=== PATIENT | female | born 1995 | race Caucasian/White ===

== ENCOUNTER → 2017-09-29 09:58 | Outpatient (CLI) | payer MEDICAID, SELFPAY ==
[2017-09-29 11:28] LABS: hCG Titer Quant., Serum < 1 mIU/mL (<9 non-preg)
== END ==
PROVIDERS: Visit Provider Obstetrics & Gynecology
DX: N91.2 Amenorrhea, unspecified (principal)
CPT/HCPCS: 36415; 84702

== ENCOUNTER → 2018-01-03 11:01 | Outpatient (CLI) | payer MEDICAID, SELFPAY ==
[2018-01-03 18:26] LABS: Chlamydia Trachomatis by PCR Negative (Negative); Neisserai gonorrhoeae by PCR Negative (Negative); Probe Check PASS; Sample Adequacy Control PASS; Specimen Processing Control PASS
[2018-01-08 13:25] LABS: HPV Reflexed? NOT INDICATED
== END ==
PROVIDERS: Visit Provider Obstetrics & Gynecology
DX: Z01.419 Encounter for gynecological examination (general) (routine) without abnormal findings (principal); Z12.4 Encounter for screening for malignant neoplasm of cervix
CPT/HCPCS: 87491; 87591; 88175; G0145

== ENCOUNTER → 2018-03-08 08:49 | Outpatient (CLI) | payer MEDICAID, SELFPAY ==
[2018-03-08 09:41] LABS: Hemoglobin A1c 5.1 % (4.2-6.3)
[2018-03-08 10:00] LABS: hCG Titer Quant., Serum < 1 mIU/mL (<9 non-preg)
[2018-03-08 10:07] LABS: Free T3 2.2 pg/mL (2.18-3.98); T4 Free Direct 1.02 ng/dL (0.76-1.46); Thyroid Stim Hormone (TSH) 0.65 uIU/mL (0.358-3.74)
== END ==
PROVIDERS: Visit Provider Obstetrics & Gynecology
DX: N93.9 Abnormal uterine and vaginal bleeding, unspecified (principal)
CPT/HCPCS: 36415; 83036; 84439; 84443; 84481; 84702

== ENCOUNTER 2019-01-10 11:28 | Emergency (ER) | payer MEDICAID, SELFPAY ==
[2019-01-10 11:29] VITALS: BP 137/70; PULSE 75; RESP 16; TEMP 36.7; O2SAT 98; BMI 34.9
--- NOTE | 2019-01-10 12:06 | ED.VIS.HA ---
History of Present Illness Chief Complaint: Headache Informant: Patient Onset: Today Context: Gradual Timing: Continuous Quality: Throbbing Location: Right temporal Current Severity: Moderate Maximum Severity: Severe Worsened by: Light Relieved by: Nothing Associated Symptoms: Nausea, Vomiting, Photophobia. Negative for: Fever, Sore Throat, Sinus Pressure, Numbness, Tingling, Preceding Aura, Visual Changes, Blurred Vision, Visual Loss Injury: - - There is no history of trauma Narrative: Patient is a 23-year-old female who presents with throbbing unilateral headache with photophobia and sonophobia. She has history of migraine headaches. She denies blurred vision or double vision. Denies ringing or ears. Denies rhinorrhea, congestion or postnasal drainage. Denies sore throat. Denies neck pain or neck stiffness. She denies cardiac or respiratory symptoms. She does report nausea and vomiting. She denies urologic symptoms. Denies skin lesions. There is no history of trauma. Patient is not sexually active. Prior similar symptoms: Yes Recent Illness/Hospitalization: No Past Medical History - Allergies and Home Meds Allergies/Adverse Reactions: Allergies hydromorphone HCl [From Dilaudid] Adverse Reaction (Verified 02/27/15 18:15) Nausea Primary Care Physician: Care Physician,No Primary [Primary Care Provider] - Prior records reviewed: Yes - High-grade headaches Lives: Alone Smoking Status: Current every day smoker Alcohol: Rare Drugs: None Review of Systems General: Denies: Chills, Fever, Sweats Eyes: Denies: Visual changes - bilaterally, Blurred Vision - bilaterally, Diplopia ENT: Denies: Rhinorrhea, Sore throat Cardiovascular: Denies: Chest pain, Palpitations Respiratory: Denies: Dyspnea, Cough, Dyspnea on exertion Gastrointestinal: Reports: Nausea, Vomiting. Denies: Abdominal pain, Diarrhea, Melena, Hematochezia Genitourinary: Denies: Dysuria, Hematuria, Frequency Musculoskeletal: Denies: Back pain, Extremity Pain Skin: Denies: Rash, Wounds Neurological: Reports: Headache. Denies: Weakness, Parasthesia, Numbness Hematologic: Denies: Easy bruising, Easy bleeding Allergy: Denies: Swelling of the mouth, Swelling of the tongue Physical Exam Vital Signs/Narrative: Vital Signs Temp Pulse Resp BP Pulse Ox 01/10/19 11:29 98.1 F 75 16 137/70 H 98 Inital Vital Signs reviewed: Yes General: Well nourished, Well developed Head: NC, AT Eyes: Perrl, EOMI. Negative for: Pale conjunctiva, Scleral icterus ENT: Moist mucous membranes, No rhinorrhea, TM's clear, - - Funduscopic exam reveals normal cup-to-disc ratio. There is no papilledema.. Negative for: Nasal congestion, Sinus tenderness Neck: Supple, No Lymphadenopathy, No JVD, Nontender, No Meningismus Cardiovascular: Regular rate, Regular rhythm, No murmurs, Normal S1, Normal S2 Respiratory: No distress, CTA bilaterally, Chest nontender Abdomen: Soft, Nontender, Nondistended, Normal bowel sounds Back: Nontender, Normal Inspection Extremities: Nontender, No edema Skin: Normal color, No rash Neuro: Alert, Oriented x3, Cranial nerves II-XII grossly intact, Normal Strength, Normal Sensation, Normal DTR, Normal Gait, - - There is no clonus or Babinski sign. Psychological: Normal affect, Depressed, Tearful Diagnostic/Tx/Re-eval - Medical Decision Making Cephalgia differential would represent tension, muscle skeletal, vascular, migraine, pseudotumor cerebri. She was treated with IV Toradol, Benadryl and Reglan. Her neuro exam is normal imaging was not obtained. Patient was reassessed at 1330. She was awake and sleep. She states her headache has resolved. She will be discharged home. ED Disposition - Plan for ED Patient: Disposition: Home or Assisted Living Diagnosis: Migraine headache without aura Instructions: ED, Migraine (Classical) Referrals: Care Physician,No Primary [Primary Care Provider] - Additional Instructions: Recommend contacting your primary care physician. The name of your primary care physician is located on your health insurance card. Recommend contacting your primary care physician. You may be a candidate for medication to prevent migraine headaches.
[2019-01-10] MEDS: DiphenhydrAMINE 50 MG/ML Syringe 25 MG IV (12:31)
[2019-01-10] MEDS: Metoclopramide 10 MG/2 ML Vial IV (12:31)
[2019-01-10] MEDS: Ketorolac 30 MG/ML Syringe 15 MG IV (12:31)
[2019-01-10] MEDS: 0.9% Normal Saline 1,000 ML 999 ML IV (12:32)
[2019-01-10 13:28] VITALS: BP 110/63; PULSE 67; RESP 16; O2SAT 100
[2019-01-10 14:00] VITALS: BP 110/63; PULSE 67; RESP 16; O2SAT 100
== END 2019-01-10 14:01 | disposition home or self-care (01) ==
PROVIDERS: Emergency Provider Emergency Medicine
DX: G43.009 Migraine without aura, not intractable, without status migrainosus (principal); F17.200 Nicotine dependence, unspecified, uncomplicated
CPT/HCPCS: 96361; 96374; 96375; 99283; J7030; A4216

== ENCOUNTER 2020-04-19 21:17 | Emergency (ER) | payer MEDICAID, SELFPAY ==
[2020-04-19 21:19] VITALS: BP 147/84; PULSE 87; RESP 16; TEMP 36.3; O2SAT 100; BMI 39.9
--- NOTE | 2020-04-19 21:33 | ED.VISSUMM ---
- ER Visit Summary Date of Service: 04/19/20 Chief Complaint: Right sided headache History of Present Illness: The patient is a 24 F history of headache states that she has migraines. Patient states she woke up this morning was doing well a gradual onset of a headache around noon which is progressively gotten worse. She denies any falls or recent head trauma. She is on no blood thinners. No sinus congestion. No fever or neck pain. No visual change. No numbness or weakness. No family history of intracranial bleeds nor aneurysms. This was not sudden onset. She has had headaches like this before. Said she normally can control them but occasionally has to come in to be seen by a physician. She did treated initially with Tylenol and also Excedrin at home without significant relief. Physical Examination: Young female sitting in a darkened room. Vital signs are stable. She is afebrile. Initial blood pressure 147/84. HEENT exam pupils round reactive light extra motions are intact. She is photophobic. No facial droop. Normal speech. No signs of trauma to her face or scalp. No sinus tenderness. Neck nontender. No lymphadenopathy. No meningismus. Able to touch her chin to chest. Lungs clear to auscultation. Heart regular rhythm no murmur. Abdomen soft nontender normal bowel sounds no peritoneal signs. Extremities moves all 4. No edema. Neurologically she is awake alert. Acting appropriately. Normal motor strength and sensation. No facial droop. Normal speech. 5/5 hydrology technician strength bilaterally. Dorsi plantarflexion intact bilaterally. [id number] and [id number] within normal limits bilaterally. NIH score of 0. Test Results: None Emergency Department Course and Treatment: History and exam are consistent with a migraine headache. She is completely normal neurologic exam. I do not think she needs imaging. She will be treated with IV fluids, IV Reglan, IV Benadryl and IV Toradol and reassess. Repeat exam at 10:31 PM. Patient swelling is some relief with the medications. She will be checked out to the overnight physician to be reassessed prior to discharge. Treatment Plan: Fluids and rest. Return if worse. Follow-up with a local primary care physician. Disposition: Discharge Impression: Acute cephalgia with history of migraines This note was generated with [employer] dictation software. It may contain incorrect words, spelling, and punctuation that were not noted in review of the chart prior to signing ED Disposition - Plan for ED Patient: Disposition: Home or Assisted Living Instructions: ED Headache Unspecified Referrals: Baldemar Montes MD [STAFF PHYSICIAN] - 3-5 Days if not improving Additional Instructions: Plenty of fluids and rest. Tylenol, Motrin and Benadryl as needed for headache. Return if feeling worse, increasing pain, fever intractable vomiting. Follow-up to get a local primary care physician.
--- NOTE | 2020-04-19 21:36 | ED.DEP ---
ED Disposition - Plan for ED Patient: Disposition: Home or Assisted Living Instructions: ED Headache Unspecified Referrals: Baldemar Montes MD [STAFF PHYSICIAN] - 3-5 Days if not improving Additional Instructions: Plenty of fluids and rest. Tylenol, Motrin and Benadryl as needed for headache. Return if feeling worse, increasing pain, fever intractable vomiting. Follow-up to get a local primary care physician.
[2020-04-19] MEDS: 0.9% Normal Saline 1,000 ML 1000 ML IV (22:18)
[2020-04-19] MEDS: DiphenhydrAMINE 50 MG/ML Syringe IV (22:19)
[2020-04-19] MEDS: Metoclopramide 10 MG/2 ML Vial IV (22:19)
[2020-04-19] MEDS: Ketorolac 30 MG/ML Syringe IV (22:19)
[2020-04-19 23:11] VITALS: BP 126/65; PULSE 66; RESP 14; O2SAT 99
== END 2020-04-19 23:29 | disposition home or self-care (01) ==
LOC: ED 21:47
PROVIDERS: Emergency Provider Emergency Medicine
DX: R51.9 Headache, unspecified (principal); F17.200 Nicotine dependence, unspecified, uncomplicated
CPT/HCPCS: 96361; 96374; 96375; 99283; J7030; A4216

== ENCOUNTER 2020-06-18 21:36 | Emergency (ER) | payer MEDICAID, SELFPAY ==
[2020-06-18 21:37] VITALS: BP 138/92; PULSE 94; RESP 16; TEMP 36.5; O2SAT 99; BMI 43.8
--- NOTE | 2020-06-18 21:47 | ED.DCSUM_ITS ---
History of Present Illness Chief Complaint: Headache Informant: Patient Narrative: Patient is a 24-year-old female who presents to the emergency department for a headache. This is typical of her migraines. It is on the right side of her head. Her initial symptoms started last night. She tried taking a new medication, risatriptan, that was just prescribed by her PCP. This did not give her any relief. She tried taking [id number] medicines which she continues to throw it up. She currently rates the pain as a 7 out of 10. It did not come on suddenly. This is not the worst headache of her life. She denies any recent illness including any fevers, neck stiffness or cough. No known aggravating or relieving factors otherwise. She does smoke cigarettes. She denies any chance of being . Past Medical History - Allergies and Home Meds Allergies/Adverse Reactions: Allergies No Known Allergies Allergy (Verified 04/19/20 21:18) Primary Care Physician: Cathi Cortez NP, BULLET SWAGING MACHINE ADJUSTER-C [Primary Care Provider] - Smoking Status: Current every day smoker Review of Systems All systems negative except as indicated General: Denies: Chills, Fever, Sweats Eyes: Denies: Visual changes - bilaterally, Diplopia ENT: Denies: Rhinorrhea, Sore throat Cardiovascular: Denies: Chest pain, Palpitations Respiratory: Denies: Dyspnea, Cough, Dyspnea on exertion Gastrointestinal: Reports: Nausea, Vomiting. Denies: Abdominal pain, Diarrhea Musculoskeletal: Denies: Back pain, Extremity Pain Skin: Denies: Rash, Wounds Neurological: Reports: Headache. Denies: Weakness, Numbness Physical Exam Vital Signs/Narrative: Vital Signs Temp Pulse Resp BP Pulse Ox 06/18/20 21:37 97.7 F L 94 16 138/92 H 99 Inital Vital Signs reviewed: Yes General: Well nourished, Well developed, No Acute Distress Head: Normocephalic, Atraumatic Eyes: Perrl, EOMI ENT: Moist mucous membranes, No rhinorrhea Neck: Supple, Nontender Cardiovascular: Regular rate, Regular rhythm, No murmurs Respiratory: No distress, CTA bilaterally, Chest nontender Back: Nontender, Normal Inspection Extremities: Nontender, No edema Skin: Normal color, No rash Neurological: Alert, Oriented x3, Cranial nerves II-XII grossly intact, Normal Strength, Normal Sensation Psychological: Normal affect, Normal Mood Diagnostic/Tx/Re-eval - Medical Decision Making Patient presents to the emergency department for headache. This is similar to her previous headaches she has a history of migraines. I do not feel she needs any imaging as she states she gets these very frequently typically once every week or 2. We will treat with a migraine cocktail including Reglan, Toradol and Benadryl. Patient reevaluated after treatment. She is sleeping on my examination. She does feel much better and would like to be discharged home at this time. She is to follow-up with her PCP. Warning signs and symptoms which return to the ED are reviewed. She understands and is agreeable this plan. All questions were answered. ED Disposition - Plan for ED Patient: Disposition: Home or Assisted Living Diagnosis: Headache Instructions: ED, Migraine (Classical) Referrals: Cathi Cortez NP, BULLET SWAGING MACHINE ADJUSTER-C [Primary Care Provider] - 3-5 Days
[2020-06-18] MEDS: Ketorolac 15 MG/ML Vial IV (22:01)
[2020-06-18] MEDS: 0.9% Normal Saline 1,000 ML 999 ML IV (22:01)
[2020-06-18] MEDS: DiphenhydrAMINE 50 MG/ML Syringe 25 MG IV (22:01)
[2020-06-18] MEDS: Metoclopramide 10 MG/2 ML Vial IV (22:01)
[2020-06-18 23:20] VITALS: RESP 14
== END 2020-06-18 23:21 | disposition home or self-care (01) ==
PROVIDERS: Emergency Provider Emergency Medicine; PCP Nurse Practitioner Family
DX: G43.909 Migraine, unspecified, not intractable, without status migrainosus (principal); F17.210 Nicotine dependence, cigarettes, uncomplicated; Z79.899 Other long term (current) drug therapy
CPT/HCPCS: 96361; 96374; 96375; 99283; J7030; A4216

== ENCOUNTER → 2020-06-30 13:11 | Outpatient (CLI) | payer MEDICAID, SELFPAY ==
[2020-06-18 21:37] VITALS: BMI 43.8
[2020-07-02 15:12] LABS: HPV Reflexed? NOT INDICATED
== END ==
PROVIDERS: PCP Nurse Practitioner Family; Visit Provider Obstetrics & Gynecology
DX: Z12.4 Encounter for screening for malignant neoplasm of cervix (principal)
CPT/HCPCS: 88175; G0145

== ENCOUNTER 2021-01-28 20:45 | Emergency (ER) | payer MEDICAID, SELFPAY ==
[2021-01-28 20:46] VITALS: BP 133/86; PULSE 83; RESP 18; TEMP 35.9; O2SAT 98; BMI 41.8
[2021-01-28 20:48] VITALS: BP 133/86; PULSE 89; RESP 16; O2SAT 99
--- NOTE | 2021-01-28 22:18 | EX.ED.VIS.HA ---
HPI History of Present Illness Chief Complaint: Headache Narrative Narrative: 25-year-old female with history of migraine presenting with migraine headache. She states is been going on for 24 hours. She tried Tylenol as well as Compazine at home without relief. She admits to light and sound sensitivity. She denies fever, chills, neck pain. She denies any head injury. She states her headache is typical of her migraines. [facility] Medical History History of migraine Home Medications prochlorperazine maleate 10 mg PO PRN PRN 01/28/21 [History Last Taken Unknown] Allergy/AdvReac Type Severity Reaction Status Date / Time No Known Allergies Allergy Verified 01/28/21 20:45 Surgical History History of cholecystectomy Social History Smoking Status: Current every day smoker tobacco type: cigarettes ROS ROS ED Constitutional Constitutional ED: Denies chills, fever(s) or subjective Eyes Eyes: Denies blurry vision or diplopia ENT ENT ED: Denies rhinorrhea or sore throat Cardiovascular Cardiovascular: Denies chest pain Respiratory/Chest Respiratory/Chest: Denies cough or dyspnea Gastrointestinal Gastrointestinal: Reports nausea and vomiting; Denies abdominal pain Genitourinary Genitourinary ED: Denies dysuria or hematuria Musculoskeletal Musculoskeletal: Denies arthralgias or myalgias Integumentary Denies rash Neurologic Neurologic: Reports headache(s); Denies paresthesias EXAM Physical Exam Const Vital Signs: 01/28/21 20:46 01/28/21 20:48 01/28/21 23:33 Temperature 96.6 F L Temperature Source Temporal Pulse Rate 83 89 Respiratory Rate 18 16 16 Blood Pressure 133/86 H 133/86 H Blood Pressure Mean 101 101 Pulse Ox 98 99 Oxygen Delivery Method Room Air Room Air Positive well nourished General Appearance ED: NAD HEENT Reports normocephalic and moist mucous membranes atraumatic Eyes PERRL and EOMs intact bilaterally Resp normal respiratory effort and clear to auscultation bilaterally Cardio regular rate and regular rhythm Neuro oriented x3, CN's II-XII intact bilaterally and no sensory deficits noted Sensorium / Orientation: awake and alert Motor Exam: strength 5/5 throughout Psych mental status grossly normal Skin Lesions: no lesions Rashes: no rashes MDM MDM MDM Narrative Medical decision making narrative: Patient presenting with headache typical of her migraine. I do not believe she has had CT scanning and she has no focal neurologic deficits or lateralizing signs or symptoms. Vital signs are stable and she is afebrile. Patient given Reglan, Benadryl, Toradol and on reevaluation the patient is sleeping comfortably and headache free. Patient feels at this time she is stable for discharge home. Patient is given return precautions. Impression: 1 headache Discharge Plan Triage Chief Complaint: Headache ED Provider: Cortes Boyd Dx/Rx/DC Orders Instructions: ED, Migraine (Classical) Prescriptions: No Action prochlorperazine maleate 10 mg tablet 10 mg PO PRN PRN (Reason: Migraine Headache) RF: 0 Primary Care Provider: Cathi Cortez NP Referrals: Cathi Cortez NP, WRECKING CAR DRIVER-C [Primary Care Provider] - Disposition Disposition: Home, Self Care
[2021-01-28] MEDS: Ketorolac 15 MG/ML Vial IV (23:02)
[2021-01-28] MEDS: Metoclopramide 10 MG/2 ML Vial IV (23:02)
[2021-01-28] MEDS: DiphenhydrAMINE 50 MG/ML Syringe 25 MG IV (23:03)
[2021-01-28 23:33] VITALS: RESP 16
== END 2021-01-29 00:04 | disposition home or self-care (01) ==
PROVIDERS: Emergency Provider Student in an Organized Health Care Education/Training Program; PCP Nurse Practitioner Family
DX: R51.9 Headache, unspecified (principal); R11.2 Nausea with vomiting, unspecified; F17.210 Nicotine dependence, cigarettes, uncomplicated; Z79.899 Other long term (current) drug therapy; Z90.49 Acquired absence of other specified parts of digestive tract
CPT/HCPCS: 96374; 96375; 99285; J7030; A4216

== ENCOUNTER 2021-04-20 07:25 | Emergency (ER) | payer MEDICAID, SELFPAY ==
[2021-04-20 07:25] VITALS: BP 127/76; PULSE 102; RESP 16; TEMP 36.2; O2SAT 100; BMI 43.0
--- NOTE | 2021-04-20 07:43 | EDS_ITS ---
HPI History of Present Illness Chief Complaint: Headache Detail of Chief Complaint: Headache that started yesterday Informant: patient Onset/Context/Timing Current Severity: Severe Narrative Narrative: Patient presents to the emergency department with complaint of a headache that gradually started yesterday. Patient tried taking acetaminophen and another migraine medicine she cannot remember the name of however she vomited up soon after. Patient states the headache is typical of her migraines. Patient states she used to get migraines very frequently and then she stopped taking her oral contraceptive which seemed to improve her migraine pattern however recently she is been having more headaches. She denies any falls or head injuries. She does complain of photophobia. Patient denies recent illness. She denies fevers. [facility] Medical History History of migraine Home Medications prochlorperazine maleate 10 mg PO PRN PRN 01/28/21 [History Last Taken Unknown] Allergy/AdvReac Type Severity Reaction Status Date / Time No Known Allergies Allergy Verified 04/20/21 07:27 Surgical History History of cholecystectomy Social History Smoking Status: Current every day smoker tobacco type: cigarettes ROS ROS ED Constitutional Constitutional ED: Reports systems reviewed and no addt'l complaints, except as documented; Denies body ache(s), change in weight or chills Eyes Eyes: Denies acute decrease in peripheral vision, change in vision, double vision or loss of vision ENT ENT ED: Reports none; Denies ear pain, lip swelling, loss taste/smell, neck pain, otalgia or sore throat Cardiovascular Cardiovascular: Reports none; Denies abdominal pain, chest pain with activity, leg edema, lightheadedness, palpitations, rapid heart rate or syncope Respiratory/Chest Respiratory/Chest: Reports none; Denies change in mental status, dry cough, dyspnea, hemoptysis, shortness of breath at rest or shortness of breath with exertion Gastrointestinal Gastrointestinal: Reports none, nausea and vomiting; Denies abdominal pain, change in stool character, diarrhea, hematemesis, hematochezia, melena or rectal bleeding Genitourinary Genitourinary ED: Reports none; Denies abdominal discomfort, anuria, dysuria, genital pain or polyuria Musculoskeletal Musculoskeletal: Reports none; Denies arthralgias, back pain, difficulty walking, extremity pain, muscle weakness or myalgias Integumentary Reports none; Denies abscess or rash Neurologic Neurologic: Reports none and headache(s); Denies abnormal gait, confusion, focal weakness, frequent falls, loss of vision, numbness, paresthesias, radicular pain, vertigo or weakness Psychiatric Psychiatric: Reports systems reviewed and no addt'l complaints, except as documented and none; Denies behavioral changes, confusion, difficulty concentrating, hallucinations, suicidal ideation, tactile hallucinations or visual hallucinations Endocrine Endocrinology: Denies none, cold intolerance, excessive sweating, fatigue or heat intolerance Hematologic/Lymphatic Hematologic/Lymphatic: Reports none; Denies anemia, easy bleeding or easy bruis ing Allergic/Immunologic Allergic/Immunologic ED: Denies as per HPI, none, lip swelling, mouth swelling, throat swelling, tongue swelling or hives EXAM Physical Exam Const Vital Signs: 04/20/21 07:25 Temperature 97.2 F L Temperature Source Temporal Pulse Rate 102 H Respiratory Rate 16 Blood Pressure 127/76 H Blood Pressure Mean 93 Pulse Ox 100 Oxygen Delivery Method Room Air Positive well nourished and well developed General Appearance ED: well developed and NAD HEENT Reports TM's clear and moist mucous membranes normocephalic and atraumatic; Negative for trauma or tenderness Tympanic Membrane ED: Yes TM's clear Eyes PERRL and EOMs intact bilaterally General Eye ED: Negative for pale conjunctiva or scleral icterus Neck no lymphadenopathy, supple and no JVD General: Negative for tenderness Chest Wall inspection of chest normal and palpation of chest normal Chest: Negative for tenderness Resp normal respiratory effort and clear to auscultation bilaterally Effort and Inspection: Negative for respiratory distress or pain with movement Auscultation: Negative for rhonchi, wheezes or diminished lung sounds Cardio regular rate, regular rhythm, S1 normal heart sound, S2 normal heart sound and no murmurs Peripheral Pulses: pulses 2+ throughout GI normal to inspection, nondistended, normoactive bowel sounds, soft to palpation, non-tender, non-distended and no masses Back/Spine no CVA tenderness and no thoracic nor lumbar tenderness Extremity normal to inspection General Extremety ED: Negative for edema General Extremity: Negative for edema Neuro oriented x3, CN's II-XII intact bilaterally, no sensory deficits noted and gait normal Neuro Narrative: Finger-nose and heel ordaz testing within normal limits, negative Romberg, negative for drift, fundi benign Sensorium / Orientation: awake, alert, oriented to person, oriented to place and oriented to time Motor Exam: strength 5/5 throughout and strength abnormal Psych mental status grossly normal Skin no rashes or lesions noted and no wounds MDM MDM MDM Narrative Medical decision making narrative: IV line established on arrival. Patient was given a liter normal same fluid bolus as well as Reglan, Benadryl, and Toradol. Patient's headache resolved. Patient advised to follow-up with her primary care physician as needed. Discharge Plan Triage Chief Complaint: Headache ED Provider: Ze Pearce Dx/Rx/DC Orders Instructions: ED, Migraine (Classical) Prescriptions: No Action prochlorperazine maleate 10 mg tablet 10 mg PO PRN PRN (Reason: Migraine Headache) RF: 0 Primary Care Provider: Cathi Cortez NP Referrals: Cathi Cortez NP, TAKE AWAY ATTENDANT-C [Primary Care Provider] - As Needed Disposition Disposition: Home, Self Care
[2021-04-20] MEDS: Ketorolac 30 MG/ML Syringe IV (08:06)
[2021-04-20] MEDS: Metoclopramide 10 MG/2 ML Vial IV (08:06)
[2021-04-20] MEDS: DiphenhydrAMINE 50 MG/ML Syringe 25 MG IV (08:06)
[2021-04-20] MEDS: 0.9% Normal Saline 1,000 ML 1000 ML IV (08:07)
[2021-04-20 09:34] VITALS: BP 108/74; PULSE 69; RESP 15; O2SAT 98
== END 2021-04-20 09:36 | disposition home or self-care (01) ==
PROVIDERS: Emergency Provider Emergency Medicine; PCP Nurse Practitioner Family
DX: G43.909 Migraine, unspecified, not intractable, without status migrainosus (principal); F17.210 Nicotine dependence, cigarettes, uncomplicated; Z79.899 Other long term (current) drug therapy
CPT/HCPCS: 96361; 96374; 96375; 99283; J7030

== ENCOUNTER 2021-07-01 09:05 | Outpatient (CLI) | payer MEDICAID, SELFPAY ==
[2021-07-03 00:06] LABS: Chlamydia By Nucleic Acid AMP Negative (Negative)
[2021-07-03 16:17] LABS: Gonococcus By Nucleic Acid AMP Negative (Negative)
== END 2021-07-01 23:59 | disposition short-term general hospital (02) ==
LOC: LABSPEC 09:12
PROVIDERS: PCP Nurse Practitioner Family; Visit Provider Obstetrics & Gynecology
DX: Z11.3 Encounter for screening for infections with a predominantly sexual mode of transmission (principal)
CPT/HCPCS: 87491; 87591

== ENCOUNTER 2021-09-28 12:14 | Outpatient (CLI) | payer MEDICAID, SELFPAY ==
[2021-09-29 22:09] LABS: Chlamydia By Nucleic Acid AMP Negative (Negative)
[2021-09-29 22:15] LABS: Gonococcus By Nucleic Acid AMP Negative (Negative)
== END 2021-09-28 23:59 | disposition home or self-care (01) ==
LOC: LABSPEC 12:15
PROVIDERS: PCP Nurse Practitioner Family; Visit Provider Obstetrics & Gynecology
DX: Z11.3 Encounter for screening for infections with a predominantly sexual mode of transmission (principal)
CPT/HCPCS: 87491; 87591

== ENCOUNTER → 2022-12-29 | Outpatient (CLI) | payer MEDICAID, SELFPAY ==
--- NOTE | 2022-12-29 08:47 | BI_ITS ---
MAMMOGRAPHY - BILATERAL DIAGNOSTIC REASON FOR EXAM: Female, 27 years old. Palpable lump in the anterior upper lateral aspect of the left breast. PERTINENT HISTORY: Grandmother with breast cancer. TECHNIQUE: Digital bilateral breast charlie (3D mammographic acquisition) in the CC and MLO projections. 2-D mediolateral oblique (MLO) and craniocaudad (CC) views of both breasts were obtained. CAD: Full Field Digital Mammography with Computer Added Detection was performed. COMPARISON: None. Baseline examination. FINDINGS: Breast Composition: The breasts are heterogeneously dense, which may obscure small masses. There are no dominant masses or suspicious calcifications. No other significant abnormalities are identified. BI/DIAG MAMM W/CAD, BILAT IMPRESSION: Negative diagnostic mammogram. With patient''s history of palpable lump in the upper outer quadrant of the left breast, targeted ultrasound correlation is recommended. ASSESSMENT CATEGORY: BIRADS Category 0: Incomplete. Need additional imaging evaluation. A letter regarding these results will be sent to the patient by the facility within 30 days. Approximately 10% of breast cancers are not detected by mammography. A normal mammogram should not delay biopsy of a clinically suspicious abnormality. Electronically Signed: René Ramirez MD at 9:33 EDT ,
--- NOTE | 2022-12-29 09:30 | US_ITS ---
STUDY: ULTRASOUND BREAST - LEFT REASON FOR EXAM: Female, 27 years old. Palpable lump left breast. TECHNIQUE: Axial and longitudinal images of the LEFT breast were performed with a high resolution ultrasound transducer. # OF IMAGES: 35 COMPARISON: Comparison is made with prior mammogram done earlier today. FINDINGS: LEFT Breast: The palpable lump corresponds to a 5 mm x 5 mm x 2 mm cyst at the 1:00 position of the breast is 6 cm from nipple. This also evidence of a 6 mm x 7 mm x 2 mm cyst at the 11:00 position of the breast at 5 cm. Incidental note is made of dilated ducts US/Breast Limited Unilateral IMPRESSION: 2 small cysts seen at the 11 and 1:00 position of the breast as described. Dilated ducts. ASSESSMENT CATEGORY: BIRADS Category 2: Benign. A letter regarding these results will be sent to the patient by the facility within 30 days. Electronically Signed: René Ramirez MD at 10:48 EDT ,
== END | disposition home or self-care (01) ==
LOC: OPBI 08:45
PROVIDERS: PCP Nurse Practitioner Family; Referring Provider Nurse Practitioner Women's Health; Visit Provider Nurse Practitioner Women's Health
DX: N63.0 Unspecified lump in unspecified breast (principal)
CPT/HCPCS: 77062; 76642; 77066; G0279

== ENCOUNTER 2023-09-13 18:50 | Emergency (ER) | payer MEDICAID, SELFPAY ==
[2023-09-13 18:51] VITALS: BP 124/77; PULSE 90; RESP 16; TEMP 36.4; O2SAT 100; BMI 31.0
--- NOTE | 2023-09-13 19:08 | EDS_ITS ---
HPI History of Present Illness Chief Complaint: Headache Informant: patient Onset/Context/Timing Onset: Today Narrative Narrative: Patient reports a history of muscle tension in her neck that will often trigger migraines. She states typically she will have neck and shoulder pain for 2 or 3 days before migraine is triggered. Today she got shoulder pain around 1 PM and symptoms progressed rapidly to a migraine. She took Zanaflex but got no relief. She states she is only taken 1 at a time and it put her to sleep she does not feel sleepy at this point. She denies recent head injury. No recent URI symptoms. [facility] Medical History History of migraine Home Medications prochlorperazine maleate 10 mg tablet 10 mg PO PRN PRN Migraine Headache 01/28/21 [History Last Taken Unknown] Allergy/AdvReac Type Severity Reaction Status Date / Time No Known Allergies Allergy Verified 09/13/23 18:54 Surgical History History of cholecystectomy Social History Smoking Status: Current every day smoker tobacco type: cigarettes ROS ROS ED Constitutional Constitutional ED: Denies chills or fever(s) Eyes Eyes: Denies change in vision or discharge from eye(s) ENT ENT ED: Denies discharge from eye(s), rhinorrhea or sore throat Cardiovascular Cardiovascular: Denies chest pain Respiratory/Chest Respiratory/Chest: Denies cough or dyspnea Gastrointestinal Gastrointestinal: Denies abdominal pain, nausea or vomiting Musculoskeletal Musculoskeletal: Reports neck pain; Denies back pain or extremity pain Integumentary Denies Abrasions or rash Neurologic Neurologic: Reports headache(s); Denies weakness Psychiatric Psychiatric: Reports anxiety; Denies depression Allergic/Immunologic Allergic/Immunologic ED: Denies lip swelling or urticaria EXAM Physical Exam Const Vital Signs: 09/13/23 18:51 Temperature 97.5 F L Temperature Source Temporal Pulse Rate 90 Respiratory Rate 16 Blood Pressure 124/77 H Blood Pressure Mean 92 Pulse Ox 100 Oxygen Delivery Method Room Air Positive well nourished and well developed General Appearance ED: well developed HEENT Reports moist mucous membranes Neck Neck Narrative: Right cervical paraspinal tenderness. No meningismus. Resp normal respiratory effort and clear to auscultation bilaterally Cardio regular rate and regular rhythm GI non-tender Palpation: soft Extremity normal to inspection and full ROM Neuro oriented x3 and no sensory deficits noted Sensorium / Orientation: awake and alert Psych mental status grossly normal MDM MDM MDM Narrative Medical decision making narrative: IV line established. Patient given Toradol, Compazine, Benadryl, and IV fluids. On repeat evaluation patient is sleeping comfortably. She easily awakens. She states that her head and neck both feel improved. She will be discharged home with family. Discharge Plan Triage Chief Complaint: Headache ED Provider: Diana Cárdenas Dx/Rx/DC Orders Clinical Impression: Migraine, Cervical muscle strain Instructions: ED, Migraine (Classical) Prescriptions: No Action prochlorperazine maleate 10 mg tablet 10 mg PO PRN PRN (Reason: Migraine Headache) Patient Comments: TAKE 1 TABLET BY MOUTH TWICE DAILY NEEDED Primary Care Provider: Cathi Cortez NP Referrals: Cathi Cortez NP, [facility] [facility] [Primary Care Provider] - As Needed Disposition Disposition: Home, Self Care
[2023-09-13] MEDS: 0.9% Normal Saline (1000mL) 1,000 ML 999 ML IV (19:28)
[2023-09-13] MEDS: Ketorolac 30 MG/ML Syringe IV (19:29)
[2023-09-13] MEDS: DiphenhydrAMINE 50 MG/ML Syringe 25 MG IV (19:30)
[2023-09-13] MEDS: proCHLORPERazine 10 MG/2 ML Vial IV (19:30)
[2023-09-13 20:30] VITALS: BP 120/60; PULSE 78; RESP 18; TEMP 36.6; O2SAT 98
[2023-09-13 20:31] VITALS: RESP 16
== END 2023-09-13 20:32 | disposition home or self-care (01) ==
PROVIDERS: Emergency Provider Emergency Medicine; PCP Nurse Practitioner Family; Visit Provider Emergency Medicine
DX: G43.909 Migraine, unspecified, not intractable, without status migrainosus (principal); S16.1XXA Strain of muscle, fascia and tendon at neck level, initial encounter; X58.XXXA Exposure to other specified factors, initial encounter; F17.210 Nicotine dependence, cigarettes, uncomplicated
CPT/HCPCS: 96361; 96374; 96375; 99282; J7030; A4216

== ENCOUNTER 2023-11-15 15:33 | Emergency (ER) | payer MEDICAID, SELFPAY ==
[2023-11-15 15:34] VITALS: BP 143/85; PULSE 69; RESP 16; TEMP 36.6; O2SAT 98; BMI 30.7
[2023-11-15 16:27] LABS: Bacteria 0 SEEN /hpf (None Seen); Mucous, Urine 0 SEEN /hpf (<or=2+); Red Blood Cells-Urine 0 SEEN /hpf (0-5); Squamous Epithelial Cells - UA 0 SEEN /hpf (5-10)
[2023-11-15 16:32] LABS: Color, Urine Yellow (Yellow); Glucose, Dipstick Normal (Normal); Ketone-Dipstick 5 mg/dl (Negative); Leukocyte Esterase-Dipstick Negative /ul (Negative); Nitrite-Dipstick Negative (Negative); Occult Blood-Urine 50 /ul (Negative); Protein-Dipstick 15 mg/dl (Negative); Urine Bilirubin Dipstick Negative (Negative); Urine Clarity Clear (Clear); Urine Urobilinogen Normal (Normal)
[2023-11-15 16:36] LABS: Absolute Lymphocyte Count 1.76 X10^3/uL (0.83-4.51); Absolute Neutrophil Count 3.3 X10^3/uL (2.0-7.7); Basophil# 0.08 X10^3/uL; Basophil% 1.4 % (0-1); Eosinophil# 0.08 X10^3/uL; Eosinophils% 1.4 % (0-5); Hematocrit 37.1 % (37-47); Hemoglobin 12.2 g/dL (12.0-15.0); Lymphocyte # 1.76 X10^3/ul (0.83-4.51); Lymphocyte % 31.8 % (19-41); Mean Corp Hgb Conc 32.9 g/dL (32-36); Mean Corpuscular Hgb 29.3 pg (27.0-32.0); Mean Corpuscular Volume 89.2 fL (81-99); Mean Platelet Vol. 10.3 fl (6.2-12.0); Monocyte# 0.33 X10^3/uL; NRBC Flagged by Analyzer 0 % (0-5); Neutrophil # 3.27 X10^3/uL (2.7-7.7); Neutrophil % 59.2 % (47-70); Platelet Count 234 K/mm3 (150-450); RBC Distribution Width CV 12.3 % (11.6-14.6); RBC Distribution Width SD 39.9 fl (35.1-43.9); Red Blood Count 4.16 M/mm3 (4.2-5.4); White Blood Count 5.5 K/mm3 (4.4-11.0)
--- NOTE | 2023-11-15 16:51 | EDS_ITS ---
HPI HPI - GI History of Present Illness Chief Complaint: Abd Pain Narrative Narrative: 28-year-old female presenting with abdominal pain which has been intermittent for about a week. She was seen by her nurse practitioner for this in office. She was told to go on a liquid diet/soft food diet. She states she has been drinking plenty of water and eating mashed potatoes. She denies nausea, vomiting, diarrhea, fever, chills. She states that she does have bowel movements every 2 days. She states that initially the pain was on the left and was pinching. She noted that it was worse when she bent over. She also had some pain on the right at some point. She is not having epigastric pain. Patient states he is not having much pain now as it does come and go. She had an x-ray performed which showed a moderate stool burden but the nurse practitioner did not think this was the cause of her pain. She was not put on any stool softeners or laxatives. Denies history of abdominal surgeries. She states he is otherwise healthy. She states she is currently on her menstrual cycle and is on time and normal. [facility] Medical History History of migraine Home Medications ?Medication ?Instructions ?Recorded ?Last Taken ?Type prochlorperazine maleate 10 mg 10 mg PO PRN PRN Migraine Headache 01/28/21 Unknown History tablet Allergy/AdvReac Type Severity Reaction Status Date / Time No Known Allergies Allergy Verified 11/15/23 15:35 Surgical History History of cholecystectomy Social History Smoking Status: Current every day smoker tobacco type: cigarettes ROS ROS ED Constitutional Constitutional ED: Denies chills, fever(s) or sweats Eyes Eyes: Denies blurry vision or change in vision ENT ENT ED: Denies ear pain or sore throat Cardiovascular Cardiovascular: Denies chest pain, palpitations or racing heartbeat Respiratory/Chest Respiratory/Chest: Denies cough, dyspnea or sputum Gastrointestinal Gastrointestinal: Reports abdominal pain; Denies constipation, diarrhea, nausea or vomiting Genitourinary Genitourinary ED: Denies dysuria, hematuria or urinary frequency Musculoskeletal Musculoskeletal: Denies arthralgias, myalgias or neck pain Integumentary Denies abscess, Abrasions or rash Neurologic Neurologic: Denies headache(s), paresthesias or weakness Psychiatric Psychiatric: Denies anxiety, depression, suicidal ideation or suicidal thoughts Endocrine Endocrinology: Denies polydipsia or polyuria EXAM Physical Exam Const Vital Signs: 11/15/23 15:34 Temperature 97.8 F Temperature Source Temporal Pulse Rate 69 Respiratory Rate 16 Blood Pressure 143/85 H Blood Pressure Mean 104 Pulse Ox 98 Oxygen Delivery Method Room Air Positive well nourished General Appearance ED: NAD; Negative for pallor HEENT Reports moist mucous membranes normocephalic and atraumatic Eyes PERRL and EOMs intact bilaterally Resp normal respiratory effort Cardio regular rate and regular rhythm GI non-distended and no masses Palpation: soft; Negative for guarding, rigid, hepatomegaly, splenomegaly or rebound tenderness present Neuro CN's II-XII intact bilaterally Sensorium / Orientation: alert Motor Exam: strength 5/5 throughout Psych mental status grossly normal and thought process normal Skin no wounds General Skin Exam: Negative for jaundice or pallor MDM MDM MDM Narrative Medical decision making narrative: Patient presenting for evaluation of her abdominal pain. She states it is cu rrently not painful. She was told by the nurse practitioner if she went home today and lay down and it was not better she should come to the emergency room. I did review that she had an x-ray which showed a moderate stool burden. We did obtain some screening lab work today. The patient's abdomen really is benign. Her vital signs are normal. She is very pleasant and smiling and laughing in e room. Screening lab work shows a normal white blood cell count of 5.5. Hemoglobin 12.2, platelets 234 renal function and electrolytes otherwise within normal limits. LFTs are normal. Urinalysis negative for infection. There is a small amount of blood however the patient is on her menstrual cycle currently. Through shared decision making we determined that we would hold off on a CT today since she already had an x-ray which showed that she was constipated. We will try magnesium citrate and she was given return precautions. She is happy with this plan. Impression 1. Abdominal pain 2. Constipation Lab Data Attestation: I reviewed the patient's lab results. Labs: Laboratory Results - last 24 hr 11/15/23 11/15/23 16:16 16:22 WBC 5.5 RBC 4.16 L Hgb 12.2 Hct 37.1 MCV 89.2 MCH 29.3 MCHC 32.9 RDW Std Deviation 39.9 RDW Coeff of Jake 12.3 Plt Count 234 MPV 10.3 Immature Gran % (Auto) 0.200 Neut % (Auto) 59.2 Lymph % (Auto) 31.8 [place] % (Auto) 6.0 Eos % (Auto) 1.4 Baso % (Auto) 1.4 H Absolute Neuts (auto) 3.3 Absolute Lymphs (auto) 1.76 Nucleated RBC % 0 Sodium 142 Potassium 3.4 L Chloride 112 H Carbon Dioxide 24.0 Anion Gap 6 BUN 6 L Creatinine 0.77 Estim Creat Clear Calc 122.40 Est GFR (MDRD) Af Amer 113 Est GFR (MDRD) Non-Af 94 BUN/Creatinine Ratio 7.8 L Glucose 87 Calcium 8.9 Total Bilirubin 0.40 AST 19 ALT 17 Alkaline Phosphatase 45 Total Protein 6.8 Albumin 3.6 Globulin 3.2 Albumin/Globulin Ratio 1.1 Urine Color Yellow Urine Clarity Clear Urine pH 6.0 Ur Specific [place] 1.020 Urine Protein 15 H Urine Glucose (UA) Normal Urine Ketones 5 H Urine Occult Blood 50 H Urine Nitrite Negative Urine Bilirubin Negative Urine Urobilinogen Normal Ur Leukocyte Esterase Negative Urine RBC 0 SEEN Urine WBC 0-5 SEEN Ur Squamous Epith Cells 0 SEEN Urine Bacteria 0 SEEN Urine Mucus 0 SEEN Urine Test Negative Discharge Plan Triage Chief Complaint: Abd Pain ED Provider: Cortes Boyd Dx/Rx/DC Orders Instructions: ED Abdominal Pain Unkn Cause Fem, ED Constipation (Adult) Prescriptions: No Action prochlorperazine maleate 10 mg tablet 10 mg PO PRN PRN (Reason: Migraine Headache) Patient Comments: TAKE 1 TABLET BY MOUTH TWICE DAILY NEEDED Primary Care Provider: Cathi Cortez NP Referrals: Cathi Cortez RESEARCH PROFESSOR, [facility] [Primary Care Provider] - Print Language: French Disposition Disposition: Home, Self Care
[2023-11-15 17:06] LABS: ALB/GLOB Ratio 1.1 RATIO (0.9-2.4); AST(SGOT) 19 U/L (15-37); Alanine Aminotransfer ALT/SGPT 17 U/L (13-56); Albumin, Serum 3.6 g/dL (3.2-5.0); Alkaline Phosphatase 45 U/L (45-117); Anion Gap 6 (5-15); BUN 6 mg/dL (7-18); BUN/Creat Ratio 7.8 RATIO (10-20); Calcium,Total 8.9 mg/dL (8.5-10.1); Chloride 112 mmol/L (98-107); Creatinine, Serum 0.77 mg/dL (0.55-1.02); EST Glomerular Filtration Rate 94 mL/min (>60); Est Glom Filt Rate - Afr Amer 113 mL/min (>60); Globulin 3.2 g/dL (2.2-4.2); Glucose 87 mg/dL (74-106); Potassium 3.4 mmol/L (3.5-5.1); Protein, Total 6.8 g/dL (6.4-8.2); Sodium Level 142 mmol/L (136-145)
[2023-11-15 17:06] LABS: Internal QC Validated? YES +Cl - CLEAR BKGD; Pregnancy, Urine Negative Negative; White Blood Cells 0-5 SEEN /hpf (0-5)
[2023-11-15] MEDS: Magnesium Citrate 300 ML PO (17:33)
[2023-11-15 17:37] VITALS: BP 135/74; PULSE 62; RESP 15; TEMP 36.4; O2SAT 99
== END 2023-11-15 17:38 | disposition home or self-care (01) ==
PROVIDERS: Emergency Provider Student in an Organized Health Care Education/Training Program; PCP Nurse Practitioner Family; Visit Provider Student in an Organized Health Care Education/Training Program
DX: R10.9 Unspecified abdominal pain (principal); K59.00 Constipation, unspecified; F17.210 Nicotine dependence, cigarettes, uncomplicated
CPT/HCPCS: 80053; 81001; 81025; 85025; 99283; A4216